=== PATIENT | female | born 1940 | race Caucasian/White ===

== ENCOUNTER → 2019-10-10 | Outpatient (CLI) | payer OTHER ==
[~2019-10-10] MED LIST: AMBEREN PO; ASPIRIN EC81 M1 PO; B-12 DOTS500 MCG PO; CALCIUM PO; CARDIOPLUS PO; COQ-10100 MG PO; CRESTOR10 MG PO; FISHOIL PO; HYDROCHLOROTH12.5 MG PO; PACERONE 200 M200 MG PO; RED YEAST RICE600 MG PO; TOPROL XL25 MG PO
[2019-10-10 11:50] LABS: POTASSIUM 5.1 mmol/L (3.5-5.1)
[2019-10-10 12:02] LABS: ALBUMIN 3.9 g/dL (3.4-5.0); ALKALINE PHOSPHATASE 90 U/L (46-116); ANION GAP 6 mmol/L (7-16); BUN 11 mg/dL (7-18); CALCIUM 9.1 mg/dL (8.5-10.1); CHLORIDE 103 mmol/L (98-107); CHOLESTEROL 215 mg/dL (<200); CO2 31 mmol/L (21-32); CREATININE 0.9 mg/dL (0.6-1.3); GLUCOSE 99 mg/dL (70-99); HDL CHOLESTEROL 59 mg/dL (>40); LDL CHOLESTEROL 122 mg/dL (<100); SGOT 28 U/L (15-37); SGPT 51 U/L (30-65); SODIUM 140 mmol/L (136-145); TC:HDL 3.6 Ratio (Not establshd); TOTAL BILIRUBIN 0.3 mg/dL (<0.1-1.0); TOTAL PROTEIN 7.3 g/dL (6.4-8.2); TRIGLYCERIDE 174 mg/dL (<150); VLDL 35 mg/dL (<40)
[2019-10-10 12:12] LABS: SERUM ASSESSMENT Clear
== END ==
LOC: M.LAB 11:22
PROVIDERS: ATTEND Registered Nurse
DX: E78.5 Hyperlipidemia, unspecified (principal); I10 Essential (primary) hypertension

== ENCOUNTER → 2019-10-31 | Outpatient (CLI) | payer OTHER ==
[2019-10-31 14:59] LABS: CALCIUM 8.9 mg/dL (8.5-10.1); CREATININE 0.8 mg/dL (0.6-1.3); POTASSIUM 4.4 mmol/L (3.5-5.1)
== END ==
LOC: M.LAB 14:38
PROVIDERS: ATTEND Registered Nurse
DX: I25.10 Atherosclerotic heart disease of native coronary artery without angina pectoris (principal); I10 Essential (primary) hypertension

== ENCOUNTER → 2020-03-10 | Outpatient (CLI) | payer OTHER ==
[2020-03-10 12:32] LABS: CHOLESTEROL 230 mg/dL (<200); HDL CHOLESTEROL 61 mg/dL (>40); LDL CHOLESTEROL 141 mg/dL (<100); SERUM ASSESSMENT Clear; TC:HDL 3.8 Ratio (Not establshd); TRIGLYCERIDE 142 mg/dL (<150); VLDL 28 mg/dL (<40)
== END ==
LOC: M.LAB 12:08
PROVIDERS: ATTEND Internal Medicine Cardiovascular Disease
DX: E78.5 Hyperlipidemia, unspecified (principal)